=== PATIENT | female | born 1960 | race Caucasian/White ===

== ENCOUNTER 2016-09-17 07:58 | Emergency (ER) | payer OTHER ==
[~2016-09-17] VITALS: Wt 90.0 kg
[~2016-09-17 07:58] MED LIST: IBUP-1542 PO; OXYM15SP34 NASAL
[2016-09-17] MEDS ORDERED: GUAI473L22 PO (08:38)
[2016-09-17] MEDS ORDERED: ACET-2047 PO (08:38)
[2016-09-17] MEDS ORDERED: AZIT250T94 PO (08:38)
--- NOTE | 2016-09-17 18:28 | ERD ---
ER Documentation Chief Complaint Date/Time DATE: 09/17/16 TIME: 18:18 Chief Complaint coughing congestion and intermittent fevers and body pain for 1 week HPI The patient is a 56-year-old female here with productive cough of yellow sputum , body aches, and sore throat 8 days. She has tried TheraFlu and merry tea without relief. She denies sick contacts. Denies international travel. Denies smoking. States she has a past medical history of diabetes type 2, hypertension and high cholesterol. She denies any other symptoms or concerns at this time including, but not limited to fever, chills, nausea, vomiting, diarrhea, abdominal pain, flank pain, dysuria, headache, neck pain or stiffness. ROS All systems reviewed and are negative except as per history of present illness. Medications Home Meds Active Scripts Azithromycin* (Zithromax*) 250 Mg Tablet, 250 MG PO .ZPACK DIRECTED, #6 TAB TAKE 500 MG (2 TABS) THE FIRST DAY THEN 250 MG (1 TAB) DAYS 2-5 Prov:SHAAR CEJA NP 09/17/16 Guaifenesin-Codeine Phosphate* (Guaifenesin* AC Cough Syrup) 473 Ml Liquid, 10 ML PO QHS Y for COUGH for 5 Days, #1 ML Prov:SHARA CEJA NP 09/17/16 Acetaminophen* (Acetaminophen*) 650 Mg Tablet, 650 MG PO Q6H Y for PAIN AND OR ELEVATED TEMP, #30 TAB Prov:SHARA CEJA NP 09/17/16 Oxymetazoline Hcl* (Afrin [place]*) 0.05% - 15 Ml [place], 2 SPRAYS NASAL BID for NASAL CONGESTION, #1 EA to each nostril Prov:MARISOL MARSHALL MD 11/11/15 Ibuprofen* (Ibuprofen*) 600 Mg Tablet, 600 MG PO TID for PAIN, #30 TAB Prov:MARISOL MARSHALL MD 11/11/15 Allergies Allergies: Coded Allergies: No Known Allergy (Unverified , 11/11/15) PMhx/Soc Medical and Surgical Hx: pt denies Medical Hx, pt denies Surgical Hx History of Surgery: Yes (KIDNEY SX) Anesthesia Reaction: No Hx Neurological Disorder: No Hx Respiratory Disorders: No Hx Cardiac Disorders: No Hx Psychiatric Problems: No Hx Miscellaneous Medical Probl: No Hx Alcohol Use: No Hx Substance Use: No Hx Tobacco Use: No Physical Exam Vitals Vital Signs Date Time Temp Pulse Resp B/P Pulse Ox O2 Delivery O2 Flow Rate FiO2 09/17/16 08:00 98.1 76 21 120/71 98 Physical Exam INITIAL VITAL SIGNS: Reviewed by me, afebrile, oximetry 98% on room air GENERAL: Alert. Well developed and well nourished. No acute distress. Nontoxic -appearing. HEAD: Head is normocephalic. Atraumatic. EYES: EOMI. PERRL. No scleral icterus. No conjunctival injection. No clear purulent drainage. ENT: External ears, nose, and mouth normal. Ear canals clear and without erythema or exudates. Tympanic membranes normal, pearly, positive light reflex , no erythema, no bulging, no effusion. Nasal passages patent and without rhinorrhea. Oropharynx is clear and without erythema, purulence, or lesions. Tonsils +2 and without erythema or exudates. Uvula midline. Airway patent. Moist mucous membranes. NECK: Supple. Full range of motion. Trachea midline. No meningismus. No lymphadenopathy. RESPIRATORY: No tachypnea. Clear to auscultation bilaterally. No wheezing, rales , or rhonchi. No evidence of increased respiratory effort. CV: Regular rate and rhythm. No murmurs, rubs, or gallops ABDOMEN: Soft, non-distended, non-tender. No guarding. Bowel sounds normal in all quadrants. BACK: No CVA tenderness. Full ROM. EXTREMITIES: No obvious deformity. No clubbing or cyanosis. No edema. SKIN: Warm and dry. No diaphoresis. No obvious rashes or lesions. NEUROLOGIC: Alert and oriented x 3. Appropriate. Face is symmetric. Speech is normal. Moves all extremities equally. Procedures/MDM Nursing Notes Reviewed Previous Medical Records requested via [employer]. EMERGENCY DEPARTMENT COURSE / MEDICAL DECISION MAKING: The patient comes to the ED secondary to productive cough of yellow sputum, body aches, and sore throat 8 days. Differential diagnosis upon initial evaluation includes but is not limited to: Pneumonia, sepsis, meningitis, bronchitis, strep pharyngitis, URI, and others. The patient's history of present illness and physical exam are most consistent with a URI, likely viral. I discussed this at length with the patient, however she was very persistent and insistent on getting a prescription for Z-Vadim. I discussed at length the risks of antibiotic resistance not only for herself but also for human kind. She verbalized understanding of this concept, however continued to persistently insist on getting a prescription for a Z-Vadim. I recommended that we obtain a chest x-ray before treating with antibiotics. The patient declined a chest x-ray. As such, I will prescribe her a Z-Vadim. Based on patient's history of present illness and physical examination the decision was made to discharge. The patient was re-evaluated after ED treatment and stabilizing measures, and symptoms have improved. There is no evidence of life threatening injuries or illnesses at this time. The patient had a benign physical exam, oximetry 98% on room air, no tachypnea, no acute distress, was well-appearing, no clinical signs of dehydration, no abdominal pain, no nausea or vomiting, no headache, no neck soreness or stiffness, no tonsillar exudates. As such, I have low suspicion at this time for pneumonia, sepsis, meningitis, or any other serious cause of productive cough, body aches, and sore throat. Given this, I believe the patient is an appropriate candidate for outpatient management and follow-up at this time. On re-examination, patient resting in no distress, stable vital signs, reports feeling better and safe for discharge with outpatient follow up with PMD in 1-2 days. Patient given return precautions. The patient verbalized understanding and agreed to return precautions. All of her questions and concerns were addressed prior to discharge. She agreed with the plan of care. Prescriptions Z-Vadim Guaifenesin with codeine to be taken only at night just before bedtime Tylenol Departure Diagnosis: Primary Impression: URI (upper respiratory infection) URI type: unspecified viral URI Qualified Code: J06.9 - Viral upper respiratory tract infection Condition: Stable Patient Instructions: Preventing Common Respiratory Infections Additional Instructions: Examines normal hoy. Cheque otro vez con dimas doctor primario en el proximo gautam o regresa aqui para mas o nueva sintomas. SHARA CEJA NP Sep 17, 2016 18:28
== END 2016-09-17 08:44 | disposition home or self-care (01) ==
LOC: FTE 07:58
DX: J06.9 Acute upper respiratory infection, unspecified (principal)
CPT/HCPCS: 99283

== ENCOUNTER 2017-02-12 09:55 | Emergency (ER) | payer OTHER ==
[~2017-02-12] VITALS: Ht 160 cm; Wt 89.0 kg
[~2017-02-12 09:55] MED LIST changes: +ACET-2047 PO; +AZIT250T94 PO; +GUAI473L22 PO
[2017-02-12 09:58] VITALS: Ht 160 cm; Wt 89.0 kg
[2017-02-12] MEDS ORDERED: KETOROLAC 30 MG INJ IV STA (10:44)
[2017-02-12] MEDS ORDERED: ONDANSETRON 4 MG INJ IV STA (10:44)
[2017-02-12] MEDS ORDERED: SOD CHLORIDE 0.9% 1,000 ML IV ONE (11:00)
--- NOTE | 2017-02-12 11:20 | ERD ---
ER Documentation Chief Complaint Date/Time DATE: 02/12/17 TIME: 11:17 Chief Complaint BIB SELF C/O NAUSEA/VOMITING, DIZZINESS AND BODYACHES SINCE LAST NIGHT HPI This is a 57-year-old female who presents the emergency department today complaining of dizziness, body aches and one bout of vomiting this morning as well as nausea. States that 2 weeks ago this happened and then she felt better and started up again yesterday. Denies any fevers or chills, chest pain or shortness of breath. ROS All systems reviewed and are negative except as per history of present illness. Medications Home Meds Active Scripts Meclizine Hcl* (Antivert*) 12.5 Mg Tab, 12.5 MG PO Q6H Y for DIZZINESS, #20 TAB Prov:MARIELY MEDINA PA-C 02/12/17 Ondansetron Hcl* (Zofran*) 4 Mg Tablet, 4 MG PO Q6H for NAUSEA AND/OR VOMITING, #30 TAB Prov:MARIELY MEDINA PA-C 02/12/17 Ibuprofen* (Motrin*) 600 Mg Tab, 600 MG PO Q6, #30 TAB Prov:MARIELY MEDINA PA-C 02/12/17 Azithromycin* (Zithromax*) 250 Mg Tablet, 250 MG PO .[place] DIRECTED, #6 TAB TAKE 500 MG (2 TABS) THE FIRST DAY THEN 250 MG (1 TAB) DAYS 2-5 Prov:SHARA CEJA, JORY 09/17/16 Guaifenesin-Codeine Phosphate* (Guaifenesin* AC Cough Syrup) 473 Ml Liquid, 10 ML PO QHS Y for COUGH for 5 Days, #1 ML Prov:SHARA CEJA NP 09/17/16 Acetaminophen* (Acetaminophen*) 650 Mg Tablet, 650 MG PO Q6H Y for PAIN AND OR ELEVATED TEMP, #30 TAB Prov:SHARA CEJA NP 09/17/16 Oxymetazoline Hcl* (Afrin [place]*) 0.05% - 15 Ml [place], 2 SPRAYS NASAL BID for NASAL CONGESTION, #1 EA to each nostril Prov:MARISOL MARSHALL MD 11/11/15 Ibuprofen* (Ibuprofen*) 600 Mg Tablet, 600 MG PO TID for PAIN, #30 TAB Prov:MARISOL MARSHALL MD 11/11/15 Allergies Allergies: Coded Allergies: No Known Allergy (Unverified , 11/11/15) PMhx/Soc History of Surgery: Yes (KIDNEY SX) Anesthesia Reaction: No Hx Neurological Disorder: No Hx Respiratory Disorders: No Hx Cardiac Disorders: No Hx Psychiatric Problems: No Hx Miscellaneous Medical Probl: No Hx Alcohol Use: No Hx Substance Use: No Hx Tobacco Use: No Physical Exam Vitals Vital Signs Date Time Temp Pulse Resp B/P Pulse Ox O2 Delivery O2 Flow Rate FiO2 02/12/17 09:58 99.0 92 18 133/82 96 Physical Exam Const: No acute distress Head: Atraumatic Eyes: Normal Conjunctiva. PERRLA. EOM intact ENT: Normal External Ears, Nose and Mouth. Neck: Full range of motion..~ No meningismus. Resp: Clear to auscultation bilaterally Cardio: Regular rate and rhythm, no murmurs Abd: Soft, non tender, non distended. Normal bowel sounds Skin: No petechiae or rashes Ext: No cyanosis, or edema Neur: Awake and alert. No focal neurologic deficits. No gait ataxia. Psych: Normal Mood and Affect Result Diagram: 02/12/17 1130 02/12/17 1130 Results 24 hrs Laboratory Tests Test 02/12/17 11:30 02/12/17 13:08 White Blood Count 6.710^3/ul Red Blood Count 4.2410^6/ul Hemoglobin 12.6g/dl Hematocrit 37.1% Mean Corpuscular Volume 87.5fl Mean Corpuscular Hemoglobin 29.7pg Mean Corpuscular Hemoglobin Concent 34.0g/dl Red Cell Distribution Width 11.7% Platelet Count 30762^3/UL Mean Platelet Volume 12.4fl Neutrophils % 68.0% Lymphocytes % 16.6% Monocytes % 6.0% Eosinophils % 8.7% Basophils % 0.6% Nucleated Red Blood Cells % 0.0/100WBC Neutrophils # 4.610^3/ul Lymphocytes # 1.110^3/ul Monocytes # 0.410^3/ul Eosinophils # 0.610^3/ul Basophils # 0.010^3/ul Nucleated Red Blood Cells # 0.010^3/ul Sodium Level 144mmol/L Potassium Level 4.3mmol/L Chloride Level 106mmol/L Carbon Dioxide Level 26mmol/L Anion Gap 16 Blood Urea Nitrogen 16mg/dl Creatinine 0.83mg/dl Glucose Level 89mg/dl Calcium Level 10.2mg/dl Total Bilirubin 1.2mg/dl Direct Bilirubin 0.00mg/dl Indirect Bilirubin 1.2mg/dl Aspartate Amino Transf (AST/SGOT) 39IU/L Alanine Aminotransferase (ALT/SGPT) 56IU/L Alkaline Phosphatase 101IU/L Total Protein 7.8g/dl Albumin 4.9g/dl Globulin 2.90g/dl Albumin/Globulin Ratio 1.68 Lipase 73U/L Bedside Urine pH (LAB) 5.5 Bedside Urine Protein (LAB) Negative Bedside Urine Glucose (UA) Negative Bedside Urine Ketones (LAB) Negative Bedside Urine Blood Trace-lysed Bedside Urine Nitrite (LAB) Negative Bedside Urine Leukocyte Esterase (L Negative Current Medications Medications (Trade) Dose Ordered Sig/Leighann Route PRN Reason Start Time Stop Time Status Last Admin Dose Admin Sodium Chloride (NS) 1,000 ml @ 1,000 mls/hr Q1H ONCE IV 02/12/17 11:00 02/12/17 11:59 DC 02/12/17 11:35 Ondansetron HCl (Zofran Inj) 4 mg ONCE STAT IV 02/12/17 10:44 02/12/17 10:51 DC 02/12/17 11:34 Ketorolac Tromethamine (Toradol) 30 mg ONCE STAT IV 02/12/17 10:44 02/12/17 10:51 DC 02/12/17 11:39 Procedures/MDM This a 57-year-old female presents the emergency department today complaining of dizziness, one bout of vomiting and body aches. Patient had indicated that she felt similar symptoms 2 weeks ago that resolved and has since returned. Given patient's age I did obtain laboratory work as well as a UA and EKG Laboratory work shows no elevated white blood cell count. She is not anemic. Platelets are within normal limits. Electro lites are within normal limits. Glucose within normal limits. Liver function is normal limits. Lipase within normal limits per UA is negative for infection. EKG read and interpreted by Dr. Copeland. Rate [address] elevation. No QT prolongation. Normal sinus rhythm. Low suspicion for acute MA, PE, pericarditis. Patient is afebrile and otherwise well-appearing. She is not tachycardic and her oxygen saturation is 96%. Patient will given IV fluids, Zofran, Toradol and reported symptoms improved. Patient symptoms at this time most consistent with dizziness of uncertain etiology. Low suspicion for electrolyte balance sepsis or serious bacterial infection hyper or hypoglycemia.. Patient may also be experiencing influenza- like symptoms as well given her complaints of body aches. I have discussed this with both her that and her son. Patient given a prescription for Zofran, Motrin and meclizine At this time the patient is stable for discharge and outpatient management. Patient should follow up with their PCP in the next 1-2 days. They may return to the emergency department sooner for any persistent or worsening of symptoms. Patient understood and agreed with the plan. Departure Diagnosis: Primary Impression: Multiple complaints Condition: MARIELY Alcazar PA-C Feb 12, 2017 11:20
[2017-02-12 11:58] LABS: ADD SCAN DIFF NO
[2017-02-12 12:08] LABS: BASOPHILS % 0.6 % (0.0-2.0); EOSINOPHILS # 0.6 10^3/ul (0.0-0.5); EOSINOPHILS % 8.7 % (0.0-7.0); HEMATOCRIT 37.1 % (37.0-47.0); HEMOGLOBIN 12.6 g/dl (12.0-16.0); LYMPHOCYTES # 1.1 10^3/ul (0.8-2.9); LYMPHOCYTES % 16.6 % (15.0-51.0); MEAN CORPUSCULAR HEMOGLOBIN 29.7 pg (29.0-33.0); MEAN CORPUSCULAR VOLUME 87.5 fl (82.0-101.0); MEAN PLATELET VOLUME 12.4 fl (7.4-10.4); MONOCYTE # 0.4 10^3/ul (0.3-0.9); NEUTROPHIL # 4.6 10^3/ul (1.6-7.5); PLATELET COUNT 182 10^3/UL (140-415); RED BLOOD COUNT 4.24 10^6/ul (4.20-5.40); RED CELL DISTRIBUTION WIDTH 11.7 % (11.5-14.5); WHITE BLOOD COUNT 6.7 10^3/ul (4.8-10.8)
[2017-02-12 12:21] LABS: ALBUMIN 4.9 g/dl (3.3-4.9); ALBUMIN/GLOBULIN RATIO 1.68; BILIRUBIN,INDIRECT 1.2 mg/dl (0-1.1); BILIRUBIN,TOTAL 1.2 mg/dl (0.2-1.3); CALCIUM 10.2 mg/dl (8.4-10.2); CREATININE 0.83 mg/dl (0.44-1.00); POTASSIUM 4.3 mmol/L (3.5-5.1); TOTAL PROTEIN 7.8 g/dl (6.1-8.1)
[2017-02-12 13:04] LABS: URINE BLOOD (Dip) POC Trace-lysed (NEGATIVE)
[2017-02-12] MEDS ORDERED: IBUP-1542 PO (13:27)
[2017-02-12] MEDS ORDERED: ONDA4TAB8 PO (13:28)
[2017-02-12] MEDS ORDERED: MECL12.574 PO (13:28)
[2017-02-12 13:40] VITALS: BP 122/75; PULSE 79; RESP 18; TEMP 98.6
== END 2017-02-12 13:43 | disposition home or self-care (01) ==
LOC: FTE 09:55
DX: R11.2 Nausea with vomiting, unspecified (principal); R42 Dizziness and giddiness; R52 Pain, unspecified
CPT/HCPCS: 80053; 81003; 83690; 85025; 93005; 96374; 96375; J1885; J2405; J7030; Z7502

== ENCOUNTER 2017-04-23 05:58 | Emergency (ER) | payer OTHER ==
[~2017-04-23] VITALS: Ht 170.2 cm; Wt 93.0 kg
[~2017-04-23 05:58] MED LIST changes: +MECL12.574 PO; +ONDA4TAB8 PO
[2017-04-23 06:01] VITALS: Ht 170.2 cm; Wt 93.0 kg
[2017-04-23] MEDS ORDERED: IBUPROFEN 800 MG TAB PO ONE (07:00)
--- NOTE | 2017-04-23 08:09 | RADRPT ---
AMENDMENT: 04/23/2017 8:10:44 AM Haroldo Martinez MD The last impression should read: If there is high clinical suspicion for additional traumatic injur y, further evaluation with CT should be considered. PROCEDURE: XR Right Ankle 3 Views. CLINICAL INDICATION: Right ankle pain and trauma. TECHNIQUE: AP, oblique and lateral views of the right ankle was performed. COMPARISON: None. FINDINGS: Transverse, minimally displaced fracture through the medial malleolus is observed. Subtle verticall y oriented lucency in the posterior malleolus that is questionable for a subtle, nondisplaced fractu re. The remaining osseous structures appear intact. No destructive bony lesions are observed. Int erosseous spaces appear normal. Small plantar calcaneal heel spur is seen. Soft tissue swelling is n oted surrounding the ankle. IMPRESSION: Medial malleolus fracture. Vertically oriented lucency in the posterior malleolus that is questionable for a subtle, nondisplac ed fracture. If further characterization is needed CT could be helpful. Soft tissue swelling surrounding the ankle. Ligamentous and tendinous injury is not excluded. If ch aracterization of the ligaments and tendons is needed MRI is recommended. If there is high clinical suspicion for bony traumatic injury, further evaluation with CT should be considered. RPTAT: AA .Haroldo Martinez MD, Date Time Electronically viewed and signed by .Haroldo Martinez MD, MD on 04/23/2017 08:12 .P/
--- NOTE | 2017-04-23 08:11 | RADRPT ---
PROCEDURE: XR Foot 3 Views. CLINICAL INDICATION: Right foot pain and trauma. TECHNIQUE: AP, oblique and lateral views of the right foot were obtained. The images were reviewe d on a PACS workstation. COMPARISON: None. FINDINGS: Minimally displaced transverse fracture through the medial malleolus is identified. Vertically orie nted, nondisplaced fracture through the posterior malleolus is observed. The remaining osseous stru ctures appear intact. Small accessory navicular bone is observed. No destructive bony lesions are i dentified. Interosseous spaces are normal. Small plantar calcaneal heel spur is seen. Soft tissue s welling is seen surrounding the ankle. IMPRESSION: Medial and posterior malleolus fractures. Soft tissue swelling surrounding the ankle. Ligamentous and tendinous injury is not excluded. If ch aracterization of the ligaments and tendons is needed MRI is recommended. Small accessory navicular bone. Plantar calcaneal heel spur. If there is high clinical suspicion for additional traumatic injury, further evaluation with CT shou ld be considered. RPTAT: AA .Haroldo Martinez MD, Date Time Electronically viewed and signed by .Haroldo Martinez MD, MD on 04/23/2017 08:11 .P/
--- NOTE | 2017-04-23 08:24 | ERD ---
ER Documentation Chief Complaint Date/Time DATE: 04/23/17 TIME: 08:20 Chief Complaint c/o right ankle pain x 2 days s/p mechanical slip and fall HPI This 57-year-old female who presents the emergency department today complaining of right foot and ankle pain after slipping and falling 3 days ago. Patient states that she is taking Advil for the pain and has pain with ambulation. Denies any previous trauma, fevers or chills ROS All systems reviewed and are negative except as per history of present illness. Medications Home Meds Active Scripts Naproxen* (Naprosyn*) 500 Mg Tablet, 500 MG PO BID Y for PAIN AND/OR INFLAMMATION, #30 TAB Prov:PROMARIELY RODRIGUEZC 04/23/17 Hydrocodone/Acetaminophen ([place] 5-325 Tablet) 1 Each Tablet, 1 TAB PO Q6H Y for PAIN, #12 TAB Prov:PROMARIELY RODRIGUEZC 04/23/17 Meclizine Hcl* (Antivert*) 12.5 Mg Tab, 12.5 MG PO Q6H Y for DIZZINESS, #20 TAB Prov:MARIELY MEDINAC 02/12/17 Ondansetron Hcl* (Zofran*) 4 Mg Tablet, 4 MG PO Q6H for NAUSEA AND/OR VOMITING, #30 TAB Prov:MARIELY MEDINAC 02/12/17 Ibuprofen* (Motrin*) 600 Mg Tab, 600 MG PO Q6, #30 TAB Prov:MARIELY MEDINAC 02/12/17 Azithromycin* (Zithromax*) 250 Mg Tablet, 250 MG PO .GAY DIRECTED, #6 TAB TAKE 500 MG (2 TABS) THE FIRST DAY THEN 250 MG (1 TAB) DAYS 2-5 Prov:SHARA CEJA, SENIOR AGRICULTURAL ASSISTANT 09/17/16 Guaifenesin-Codeine Phosphate* (Guaifenesin* AC Cough Syrup) 473 Ml Liquid, 10 ML PO QHS Y for COUGH for 5 Days, #1 ML Prov:SHARA CEJA, SENIOR AGRICULTURAL ASSISTANT 09/17/16 Acetaminophen* (Acetaminophen*) 650 Mg Tablet, 650 MG PO Q6H Y for PAIN AND OR ELEVATED TEMP, #30 TAB Prov:SHARA CEJA, SENIOR AGRICULTURAL ASSISTANT 09/17/16 Oxymetazoline Hcl* (Afrin [place]*) 0.05% - 15 Ml [place], 2 SPRAYS NASAL BID for NASAL CONGESTION, #1 EA to each nostril Prov:MARISOL MARSHALL MD 11/11/15 Ibuprofen* (Ibuprofen*) 600 Mg Tablet, 600 MG PO TID for PAIN, #30 TAB Prov:MARISOL MARSHALL MD 11/11/15 Allergies Allergies: Coded Allergies: No Known Allergy (Unverified , 11/11/15) PMhx/Soc History of Surgery: Yes (KIDNEY SX) Anesthesia Reaction: No Hx Neurological Disorder: No Hx Respiratory Disorders: No Hx Cardiac Disorders: No Hx Psychiatric Problems: No Hx Miscellaneous Medical Probl: No Hx Alcohol Use: No Hx Substance Use: No Hx Tobacco Use: No Physical Exam Vitals Vital Signs Date Time Temp Pulse Resp B/P Pulse Ox O2 Delivery O2 Flow Rate FiO2 04/23/17 06:01 98.4 78 18 136/63 96 Physical Exam Const: Sitting in wheelchair, no acute distress Head: Atraumatic Eyes: Normal Conjunctiva ENT: Normal External Ears, Nose and Mouth. Neck: Full range of motion..~ No meningismus. Resp: Clear to auscultation bilaterally Cardio: Regular rate and rhythm, no murmurs Skin: No petechiae or rashes MSk Right ankle With no obvious deformity. Moderate effusion. Unable to assess range of motion secondary to pain. Right foot diffusely tender to palpation. Moderate effusion. Pulses 2+. Distal neurovascularly intact. Neur: Awake and alert Psych: Normal Mood and Affect Results 24 hrs Current Medications Medications (Trade) Dose Ordered Sig/Leighann Route PRN Reason Start Time Stop Time Status Last Admin Dose Admin Ibuprofen (Motrin) 800 mg ONCE ONCE PO 04/23/17 07:00 04/23/17 07:01 DC 04/23/17 07:04 Acetaminophen/ Hydrocodone Bitart ([place] (5/325)) 1 tab ONCE ONCE PO 04/23/17 08:30 04/23/17 08:31 DC 04/23/17 08:33 DIAGNOSTIC IMAGING REPORT Patient: MANDY VINSON : 1960 Age: 57 Sex: F MR #: [id number] DOS: 04/23/17 0000 Ordering MD: MARIELY MEDINA PA-C Location: [facility] Room/Bed: AMENDMENT: 04/23/2017 8:10:44 AM Haroldo Martinez MD The last impression should read: If there is high clinical suspicion for additional traumatic injury, further evaluation with CT should be considered. PROCEDURE: XR Right Ankle 3 Views. CLINICAL INDICATION: Right ankle pain and trauma. TECHNIQUE: AP, oblique and lateral views of the right ankle was performed. COMPARISON: None. FINDINGS: Transverse, minimally displaced fracture through the medial malleolus is observed. Subtle vertically oriented lucency in the posterior malleolus that is questionable for a subtle, nondisplaced fracture. The remaining osseous structures appear intact. No destructive bony lesions are observed. Interosseous spaces appear normal. Small plantar calcaneal heel spur is seen. Soft tissue swelling is noted surrounding the ankle. IMPRESSION: Medial malleolus fracture. Vertically oriented lucency in the posterior malleolus that is questionable for a subtle, nondisplaced fracture. If further characterization is needed CT could be helpful. Soft tissue swelling surrounding the ankle. Ligamentous and tendinous injury is not excluded. If characterization of the ligaments and tendons is needed MRI is recommended. If there is high clinical suspicion for bony traumatic injury, further evaluation with CT should be considered. RPTAT: AA .Haroldo Martinez MD, MD Date Time Electronically viewed and signed by .Haroldo Martinez MD, MD on 04/23/2017 08:12 .P/ CC: MARIELY MEDINA PA-C DIAGNOSTIC IMAGING REPORT Patient: MANDY VINSON : 1960 Age: 57 Sex: F MR #: [id number] DOS: 04/23/17 0000 Ordering MD: MARIELY MEDINA PA-C Location: [facility] Room/Bed: PROCEDURE: XR Foot 3 Views. CLINICAL INDICATION: Right foot pain and trauma. TECHNIQUE: AP, oblique and lateral views of the right foot were obtained. The images were reviewed on a PACS workstation. COMPARISON: None. FINDINGS: Minimally displaced transverse fracture through the medial malleolus is identified. Vertically oriented, nondisplaced fracture through the posterior malleolus is observed. The remaining osseous structures appear intact. Small accessory navicular bone is observed. No destructive bony lesions are identified. Interosseous spaces are normal. Small plantar calcaneal heel spur is seen. Soft tissue swelling is seen surrounding the ankle. IMPRESSION: Medial and posterior malleolus fractures. Soft tissue swelling surrounding the ankle. Ligamentous and tendinous injury is not excluded. If characterization of the ligaments and tendons is needed MRI is recommended. Small accessory navicular bone. Plantar calcaneal heel spur. If there is high clinical suspicion for additional traumatic injury, further evaluation with CT should be considered. RPTAT: AA .Haroldo Martinez MD, MD Date Time Electronically viewed and signed by .Haroldo Martinez MD, MD on 04/23/2017 08:11 .P/ CC: MARIELY MEDINA PA-C Procedures/[facility] This a 57-year-old female who presents the emergency department today complaining of right foot and ankle pain after slipping and falling 3 days ago. Patient did have a significant amount of swelling and was having pain with ambulation and therefore I did obtain images. Per the radiology report images of the right foot and ankle show a transverse minimally displaced fracture through the medial malleolus. There is a subtle vertical oriented lucency in the posterior malleolus is questionable for subtle nondisplaced fracture. Remaining osseous structures appear intact. There is a small plantar calcaneal heel spur seen and there is soft tissue swelling surrounding the ankle. This is likely the source of the patient's pain and swelling. Patient was placed in a splint. She was distal neurovascularly intact pre-and post splint application. Patient was instructed to follow-up with her primary care doctor today for referral to orthopedics. Patient did indicate she does have a primary care doctor. Patient was given Motrin and [place] here in the emergency department. She was given crutches to help ambulate. She was given a prescription for Naprosyn and [place] for home. At this time the patient is stable for discharge and outpatient management. Patient should follow up with their PCP in the next 1-2 days. They may return to the emergency department sooner for any persistent or worsening of symptoms. Patient understood and agreed with the plan. Departure Diagnosis: Primary Impression: Ankle fracture Encounter type: initial encounter Fracture type: closed Laterality: right Qualified Code: S82.891A - Closed fracture of right ankle, initial encounter Condition: Fair MARIELY MEDINA PA-C Apr 23, 2017 08:24
[2017-04-23] MEDS ORDERED: HYDROCODONE/APAP (5/325) TAB PO ONE (08:30)
[2017-04-23] MEDS ORDERED: NAPR-260 PO (08:31)
[2017-04-23] MEDS ORDERED: HYDR-906 PO (08:31)
== END 2017-04-23 08:50 | disposition home or self-care (01) ==
LOC: FTE 05:58
DX: S82.891A Other fracture of right lower leg, initial encounter for closed fracture (principal); W01.0XXA Fall on same level from slipping, tripping and stumbling without subsequent striking against object, initial encounter; Y92.9 Unspecified place or not applicable
CPT/HCPCS: 29515; 73610; 73630; Z7502; Z7610

== ENCOUNTER 2017-09-23 06:25 | Emergency (ER) | END 2017-09-23 09:05 | disposition home or self-care (01) ==

== ENCOUNTER 2018-03-06 14:02 | Emergency (ER) | END 2018-03-06 19:45 | disposition home or self-care (01) ==

== ENCOUNTER 2018-07-29 05:36 | Inpatient (IN) | END 2018-07-31 21:27 | disposition home or self-care (01) | DRG 743 ==